=== PATIENT | male | born 1940 | race African-American/Black ===

== ENCOUNTER 2017-08-08 17:33 | Emergency (ER) | payer MEDICARE, MEDICAID ==
[~2017-08-08] VITALS: Ht 167.6 cm; Wt 49.9 kg
[2017-08-08 17:35] VITALS: BP 99/86
[2017-08-08 17:45] VITALS: BP 88/66
[2017-08-08] MEDS ORDERED: Etomidate 40mg/20ml Inj IV ONE (17:51)
[2017-08-08] MEDS ORDERED: Zemuron 50mg/5ml Inj IV ONE (17:51)
[2017-08-08 18:02] VITALS: BP 60/36
[2017-08-08] MEDS ORDERED: ACETAMINOPHEN325 M1 ORAL (18:08)
[2017-08-08] MEDS ORDERED: DOCUSATE SODIU100 MG ORAL (18:09)
[2017-08-08] MEDS ORDERED: LANTUS SOL100 UNIT/1 SUBQ (18:09)
[2017-08-08] MEDS ORDERED: ADALAT10 MG ORAL (18:09)
[2017-08-08] MEDS ORDERED: CRANBERRY450 M4 PO (18:09)
[2017-08-08] MEDS ORDERED: OMEPRAZOLE20 M2 ORAL (18:09)
[2017-08-08] MEDS ORDERED: TAMSULOSIN HCL0.4 MG ORAL (18:09)
[2017-08-08] MEDS ORDERED: FERROUS SULFAT325 MG ORAL (18:09)
[2017-08-08] MEDS ORDERED: PROSCAR5 MG ORAL (18:09)
[2017-08-08] MEDS ORDERED: COSOPT EYE DROP10 M1 OP (18:09)
[2017-08-08] MEDS ORDERED: LUMIGAN2.5 ML BOTH EYES (18:09)
[2017-08-08] MEDS ORDERED: ASCORBIC ACID500 MG ORAL (18:09)
[2017-08-08] MEDS ORDERED: ATORVASTATIN CA40 MG ORAL (18:09)
[2017-08-08] MEDS ORDERED: IPRATROPIU0.2 MG/1 M HHN (18:09)
[2017-08-08] MEDS ORDERED: MULTI-DELYN237 ML ORAL (18:09)
[2017-08-08] MEDS ORDERED: [UNRECOGNIZED DRUG - OTHER] PO (18:09)
[2017-08-08] MEDS ORDERED: PROAIR HFA8.5 GM INH (18:09)
[2017-08-08] MEDS ORDERED: DONEPEZIL HCL10 M2 ORAL (18:09)
[2017-08-08] MEDS ORDERED: MILK OF MA400 MG/51 ORAL (18:09)
[2017-08-08] MEDS ORDERED: METOPROLOL SUCC25 MG ORAL (18:09)
[2017-08-08] MEDS ORDERED: GLIMEPIRIDE1 MG ORAL (18:09)
[2017-08-08] MEDS ORDERED: BISACODYL5 MG RC (18:09)
[2017-08-08] MEDS ORDERED: Clindamycin 900mg 50 ML IVPB ONE (18:15)
[2017-08-08 18:22] VITALS: BP 57/27
[2017-08-08 18:28] LABS: MEAN CORPUSCULAR HGB CONC 32.1 G/DL (32.0-36.0); MEAN CORPUSCULAR VOLUME 84 FL (80-99); PLATELET COUNT 354 K/UL (150-450); RED BLOOD COUNT 4.92 M/UL (4.70-6.10); RED CELL DISTRIBUTION WIDTH 15.4 % (11.6-14.8)
[2017-08-08 18:31] LABS: WHITE BLOOD COUNT 23.1 K/UL (4.8-10.8)
[2017-08-08 18:35] VITALS: BP 43/27
--- NOTE | 2017-08-08 18:36 | Emergency Room Report ---
History of Present Illness General Chief Complaint: Dyspnea/Respdistress Source: EMS Present Illness HPI [id number] BIBEMS from SNF for severe respiratory distress Not responsive to pain/verbal stimuli O2 sat 40s per EMS We called SNF - patient full CODE History of SCC lung cancer, dementia - poor prognosis Dr Garcia is PMD Patient not providing additional HPI No family bedside HPI limited d/t critical nature of patient Allergies: Coded Allergies: PENICILLINS (Verified Allergy, Unknown, 08/08/17) Patient History Limited by: age, medical condition Past Medical History: dementia Past Surgical History: unable to obtain Pertinent Family History: unable to obtain Social History: Reports: smoking Immunizations: UTD Reviewed Nursing Documentation: PMH: Agreed, PSxH: Agreed Nursing Documentation-PMH Past Medical History: No History, Except For Hx Cardiac Problems: Yes Hx Hypertension: Yes Hx COPD: No - ANEMIA Hx Diabetes: Yes Hx Gastrointestinal Problems: Yes - GI BLEED History Of Psychiatric Problem: Yes - DEMENTIA Hx Neurological Problems: Yes - ENCEPHALOPATHY Review of Systems All Other Systems: limited - unresponsive Physical Exam Vital Signs Date Time Temp Pulse Resp B/P (MAP) Pulse Ox O2 Delivery O2 Flow Rate FiO2 08/08/17 17:30 64 28 95/52 80 Room Air 08/08/17 17:35 96.3 15.0 08/08/17 18:19 100 Sp02 EP Interpretation: reviewed, abnormal General Appearance: severe distress, cachetic, other - Unresponsive to pain, verbal stimuli Head: normocephalic, atraumatic Eyes: bilateral eye other - bilateral pupils mid-size, non reactionary ENT: normal ENT inspection, normal pharynx, no angioedema Neck: normal inspection, full range of motion, supple, no meningismus Respiratory: normal inspection, other - Left sided rhonchi, diminished right side Cardiovascular #1: normal peripheral pulses, no JVD, no murmur Gastrointestinal: normal inspection, normal bowel sounds, non tender, soft, no guarding, no hernia Genitourinary: no CVA tenderness Musculoskeletal: normal inspection, back normal, normal range of motion, Jamey' s Sign negative Neurologic: other - No deliberate focal movement. Intact gag. No corneal reflux. No purposeful movement Psychiatric: mood/affect normal Skin: no rash Procedures Critical Care Time Critical Care Time 75 minutes of continuous coding (See code note), discussion with PMD, discussion with family, review of labs, review of SNF paperwork CPR/Code Blue CPR/Code Blue Narrative Patient intubated soon after arrival 1746: patient lost pulse. PEA on monitor CPR started and epi given 1750: On rhythym check, patient in Vfib. Was shocked with 200J Additional Epi given 175: Still in VFIB. Shock given 175: Amiodarone 300mg given 175: Asystole 175: CPR continued with epi 181: Lost pulse PEA on rhythm check Patient would have ?ROSC only with epi/intermittent atropine doses/CPR Without mechanical or medication support, no pulse, or contractility on bedside sono Patient continued to bradycardia down and with asystole Additional round of CPR done but asystole still on monitor 184 time of No gag reflux no corneal reflux No cardiac contractility on bedside sono On monitor, asystole Intubation Intubation : Consent: Emergent Intubation Method: orotracheal Tube Size (cm): 7.5 Medications: Etomidate, Rocuronium Breath Sounds after Intubation: equal Intubation Complications: no complications Post Intubation Xray: Yes Attempts: One Patient Tolerated: Well Complications: None Medical Decision Making Diagnostic Impression: Primary Impression: Respiratory arrest Additional Impression: Cardiopulmonary arrest ER Course See CODE note Ultimately patient pronounced at 1843 Spoke to ANDREINA Edwards on patients expiration Spoke to patient's on phone that patient at 7pm She is trying to find transport to [place] Labs: elevated leuks, lactate 10. Multiple metabolic abnormalities/ derangement. Troponin 0. ECG shows sinus tachycardia EKG Diagnostic Results Rate: tachycardiac Chest X-Ray Diagnostic Results Chest X-Ray Diagnostic Results : Chest X-Ray Ordered: Yes # of Views/Limited/Complete: 1 View Indication: Other - AMS EP Interpretation: Yes Interpretation: other - Mass in left upper lobe of lung Electronically Signed by: Dr Kelsey Majano MD Last Vital Signs Date Time Temp Pulse Resp B/P (MAP) Pulse Ox O2 Delivery O2 Flow Rate FiO2 08/08/17 18:19 45 24 100 08/08/17 17:35 Non-Rebreather 15.0 08/08/17 17:35 96.3 99/86 80 Status: worsened Disposition: Condition: Critical Referrals: NON PHYSICIAN (PCP) KELSEY MAJANO M.D. Aug 08, 2017 18:36
[2017-08-08 18:41] LABS: TROPONIN I < 0.30 ng/mL (<=0.30)
[2017-08-08 18:42] LABS: REFLEX LACTIC ACID YES OR NO YES
[2017-08-08 18:43] VITALS: BP 0/0
[2017-08-08 18:53] LABS: ALANINE AMINOTRANSFERASE 21 U/L (3-41); ALBUMIN/GLOBULIN RATIO 0.5 (1.0-2.7); ANION GAP 31 (5-15); ASPARTATE AMINO TRANSFERASE 16 U/L (5-40); CALCIUM 10.9 mg/dL (8.6-10.2); CARBON DIOXIDE 14 mEQ/L (20-30); CHLORIDE 112 mEQ/L (98-107); CREATININE 5.5 mg/dL (0.7-1.2); HEMOLYSIS 115; POTASSIUM 5.6 mEQ/L (3.4-4.9); SODIUM 157 mEQ/L (135-145); TOTAL PROTEIN 8.9 g/dL (6.6-8.7)
[2017-08-08 19:03] LABS: CKMB < 1.5 ng/mL (< 6.7)
[2017-08-08 19:08] LABS: BAND NEUTROPHILS % (MANUAL) 5 % (0-8); LYMPHOCYTES % (MANUAL) 7 % (20-45); NEUTROPHILS % (MANUAL) 84 % (45-75); TOTAL CELLS COUNTED 100
[2017-08-08 19:09] LABS: ANISOCYTOSIS 1+; BASOPHILS % (MANUAL) 0 % (0-2); EOSINOPHILS % (MANUAL) 0 % (0-3); PLATELET ESTIMATE ADEQUATE; PLATELET MORPHOLOGY NORMAL
--- NOTE | 2017-08-09 10:25 | Diagnostic Imaging Report ---
Indication: Intubation Comparison: None A single view chest radiograph was obtained. Findings: Overlying material such as but the bladder pads obscure imaging. There is a large mass that is round projected over the left upper lobe. Some interstitial/reticular densities also noted throughout the lung gasca especially at the lung bases. Heart size appears normal. Endotracheal tube position is satisfactory. Impression: Endotracheal tube in good position. Large mass in the left upper lobe. Reticular lung densities, nonspecific
== END 2017-08-08 21:33 | disposition expired ==
LOC: EDBD 17:33 → EMR 17:50
DX: I46.9 Cardiac arrest, cause unspecified (principal); I10 Essential (primary) hypertension; J44.9 Chronic obstructive pulmonary disease, unspecified; E11.9 Type 2 diabetes mellitus without complications; D64.9 Anemia, unspecified; F17.200 Nicotine dependence, unspecified, uncomplicated; Z85.118 Personal history of other malignant neoplasm of bronchus and lung; F03.90 Unspecified dementia, unspecified severity, without behavioral disturbance, psychotic disturbance, mood disturbance, and anxiety; Z88.0 Allergy status to penicillin
CPT/HCPCS: 31500; 36415; 71010; 80053; 82550; 82553; 83605; 84484; 85007; 85025; 92950; 94002; S0077